=== PATIENT | female | born 1970 | race African-American/Black ===

== ENCOUNTER 2019-03-02 09:46 | Emergency (ER) | payer SELFPAY ==
[2019-03-02] MEDS ORDERED: NORMAL SALINE 1000 ML 1,000 ML IV ONE (10:18)
--- NOTE | 2019-03-02 10:20 | ER Document Report ---
ED Medical Screen (RME) - General Chief Complaint: Chest Pain Stated Complaint: CHEST PAINS/LOW ENERGY/BLURRY VISION/DIZZY Time Seen by Provider: 03/02/19 10:16 Primary Care Provider: KENZIE MYLES MD [Primary Care Provider] - Follow up as needed Mode of Arrival: Ambulatory Information source: Patient Notes: 48-year-old female presents to ED for complaint of blurred vision nausea frequent urination dizziness and chest pain. She is a type II diabetic that takes Lantus and metformin and metformin. She states she been taking her metformin but not her Lantus. Her blood sugar is elevated in the emergency room. She states she also has a history of high blood pressure and anxiety. She states she is taking those medications. Patient states she does inter mittently have chest pain. And she does have some at this time. Patient is alert oriented respirations regular and unlabored speaking in full sentences walks with a even steady gait. She has been ordered blood work chest x-ray Accu-Chek and IV fluids. The patient has chosen to leave the facility against medical advice. The relevant issues have been reviewed and discussed with the patient and family at the bedside. At the time of this assessment there is no indication for involuntary commitment. The patient is alert, oriented, and able to express clearly their reasoning for not wanting to remain in the emergency department for further treatment. The patient is not clinically psychotic, intoxicated, and denies and suicidal ideation. Differential or suspected diagnoses based on medical screening exam: . The patient is aware of the concerning diagnoses and acknowledges understanding of the reasons for the following recommendations: The following recommendations/services were offered and refused: The following risks were explained: , permanent disability, loss of function Clinical impression: Patient is competent to make decisions regarding the medical that is being offered. TRAVEL OUTSIDE OF THE [place] IN LAST 30 DAYS: No - Related Data Allergies/Adverse Reactions: Penicillins Allergy (Verified 03/02/19 09:48) Past Medical History - Social History Frequency of alcohol use: None Drug Abuse: None - Past Medical History Cardiac Medical History: Reports: Hx Hypertension - on meds Denies: Hx Coronary Artery Disease, Hx Heart Attack Pulmonary Medical History: Denies: Hx Asthma, Hx Bronchitis, Hx COPD, Hx Pneumonia Neurological Medical History: Denies: Hx Cerebrovascular Accident, Hx Seizures Endocrine Medical History: Reports: Hx Diabetes Mellitus Type 2 Renal/ Medical History: Denies: Hx Peritoneal Dialysis Musculoskeltal Medical History: Reports Hx Arthritis - low back arthritis Psychiatric Medical History: Reports: Hx Depression Past Surgical History: Reports: Hx Tubal Ligation. Denies: Hx Hysterectomy - 30 - Immunizations Hx Diphtheria, Pertussis, Tetanus Vaccination: Yes Physical Exam - Vital signs Vitals: Temp Pulse Resp BP Pulse Ox 97.5 F 87 20 132/89 H 96 03/02/19 10:00 03/02/19 10:00 03/02/19 10:00 03/02/19 10:00 03/02/19 10:00 Course - Vital Signs Vital signs: Temp Pulse Resp BP Pulse Ox 97.5 F 87 20 132/89 H 96 03/02/19 10:00 03/02/19 10:00 03/02/19 10:00 03/02/19 10:00 03/02/19 10:00 - Laboratory Laboratory results interpreted by me: 03/02/19 10:08 POC Glucose 356 H Doctor's Discharge - Discharge Referrals: KENZIE MYLES MD [Primary Care Provider] - Follow up as needed
--- NOTE | 2019-03-02 11:14 | RADIOLOGY REPORT (SQ) ---
EXAM DESCRIPTION: CHEST 2 VIEWS COMPLETED DATE/TIME: 03/02/2019 10:49 am REASON FOR STUDY: chest pain COMPARISON: 04/28/2016. EXAM PARAMETERS: NUMBER OF VIEWS: two views TECHNIQUE: Digital Frontal and Lateral radiographic views of the chest acquired. RADIATION DOSE: NA LIMITATIONS: none FINDINGS: LUNGS AND PLEURA: No opacities, masses or pneumothorax. No pleural effusion. MEDIASTINUM AND HILAR STRUCTURES: No masses or contour abnormalities. HEART AND VASCULAR STRUCTURES: Heart normal size. No evidence for failure. BONES: No acute findings. HARDWARE: None in the chest. OTHER: No other significant finding. IMPRESSION: NO ACUTE RADIOGRAPHIC FINDING IN THE CHEST. TECHNICAL DOCUMENTATION: JOB ID: [id number] [employer]- All Rights Reserved Reading location - IP/workstation name: [email or web address]
--- NOTE | 2019-03-02 11:14 | ER Document Report ---
ED General - General Chief Complaint: Chest Pain Stated Complaint: CHEST PAINS/LOW ENERGY/BLURRY VISION/DIZZY Time Seen by Provider: 03/02/19 10:16 Primary Care Provider: KENZIE MYLES MD [Primary Care Provider] - Follow up as needed Mode of Arrival: Ambulatory Notes: Pleasant 48-year-old female with [id number] diabetes mellitus presents to the emergency department for multiple complaints. Chief among those is blurred vision over the last couple of weeks low energy urinary frequency, dizziness, and concerned that blood sugar might be high. Also complains of chest pains and vaginal irritation. She does periodically get cold sweats, denies recent illness, denies shortness of breath, randomly gets nausea, denies vomiting, complains of epigastric pain, denies any pelvic pain, complains of urinary frequency, denies dysuria. She says she is not compliant with her me dication regimen. TRAVEL OUTSIDE OF THE [place] IN LAST 30 DAYS: No - Related Data Allergies/Adverse Reactions: Penicillins Allergy (Verified 03/02/19 09:48) Past Medical History - General Information source: Patient - Social History Smoking Status: Never Smoker Frequency of alcohol use: None Drug Abuse: None Family History: Reviewed & Not Pertinent Patient has suicidal ideation: No Patient has homicidal ideation: No - Past Medical History Cardiac Medical History: Reports: Hx Hypertension - on meds Denies: Hx Coronary Artery Disease, Hx Heart Attack Pulmonary Medical History: Denies: Hx Asthma, Hx Bronchitis, Hx COPD, Hx Pneumonia Neurological Medical History: Denies: Hx Cerebrovascular Accident, Hx Seizures Endocrine Medical History: Reports: Hx Diabetes Mellitus Type 2 Renal/ Medical History: Denies: Hx Peritoneal Dialysis Musculoskeletal Medical History: Reports Hx Arthritis - low back arthritis Psychiatric Medical History: Reports: Hx Depression Past Surgical History: Reports: Hx Tubal Ligation. Denies: Hx Hysterectomy - 32 - Immunizations Hx Diphtheria, Pertussis, Tetanus Vaccination: Yes Review of Systems - Review of Systems Constitutional: See HPI EENT: No symptoms reported Cardiovascular: See HPI Respiratory: See HPI Gastrointestinal: See HPI Genitourinary: See HPI Female Genitourinary: No symptoms reported Musculoskeletal: No symptoms reported Skin: No symptoms reported Hematologic/Lymphatic: No symptoms reported Neurological/Psychological: No symptoms reported Physical Exam - Vital signs Vitals: Temp Pulse Resp BP Pulse Ox 97.5 F 87 20 132/89 H 96 04/19/19 10:00 03/02/19 10:00 03/02/19 10:00 03/02/19 10:00 03/02/19 10:00 - Notes Notes: PHYSICAL EXAMINATION: Reviewed vital signs and charting by RN GENERAL: Alert, interacts well. No acute distress. HEAD: Normocephalic, atraumatic. EYES: Pupils equal and round. Extraocular movements intact. ENT: Oral mucosa moist, tongue midline. NECK: Full range of motion. Supple. Trachea midline. LUNGS: Clear to auscultation bilaterally, no wheezes, rales, or rhonchi. No respiratory distress. HEART: Regular rate and rhythm. No murmur ABDOMEN: soft, non-tender. Non-distended. Bowel sounds present. no McBurney's point tenderness, no Perez sign. EXTREMITIES: Moves all 4 extremities spontaneously. No edema, No cyanosis. Normal distal neurovascular exam BACK: No CVAT NEUROLOGIC: Oriented and appropriate. Normal speech. PSYCH: Normal affect, normal mood. SKIN: Warm, dry, normal turgor. No rashes or lesions noted. Course - Re-evaluation Re-evalutation: 03/02/19 12:23 Very pleasant 48-year-old female with polyuria and poorly treated diabetes presents for multiple problems. Blood glucose in the 350s, bicarb 25, no evidence of DKA. PH 7.36. Otherwise no electrolyte derangements or lab abnormalities. Troponin negative. EKG unremarkable for STEMI or N STEMI. Patient is complaining of some vaginal itching. 03/02/19 12:38 We will give her Diflucan 150 mg 1 time and regular insulin 8 units subcutaneous. 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 The majority of these issues stem from your sugar. We have given you some insulin most of which stem from your uncontrolled diabetes here in the emergency department to help reduce your blood sugar a little bit. It is high but it is not it is dangerous level and you do not have DKA that would keep you in the hospital. It is important to continue taking your insulin at night and to take your metformin. Blood sugar asked like battery acid on your blood vessels and over time will cause you serious problems. For the vaginal itching we have given you something called Diflucan. This should help your symptoms somewhat. Is a one-time dosing. If you become severely lightheaded, pass out, become dehydrated from frequent urination, have intractable nausea or vomiting, severe chest pain, please immediately return to the emergency department. Referrals: KENZIE MYLES MD [Primary Care Provider] - Follow up as needed
[2019-03-02 11:37] LABS: ABSOLUTE BASOPHILS # (AUTO) 0.1 10^3/uL (0.0-0.2); ABSOLUTE EOSINOPHILS # (AUTO) 0.1 10^3/uL (0.0-0.6); ABSOLUTE LYMPHOCYTES (AUTO) 1.6 10^3/uL (0.5-4.7); ABSOLUTE MONOCYTES (AUTO) 0.4 10^3/uL (0.1-1.4); ABSOLUTE NEUT (AUTO) 2.9 10^3/uL (1.7-8.2); EOSINOPHILS % (AUTO) 1.5 % (0-6); HEMATOCRIT 41.1 % (36.0-47.0); HEMOGLOBIN 13.2 g/dL (12.0-15.5); LYMPHOCYTES % (AUTO) 32.6 % (13-45); MEAN CORPUSCULAR HEMOGLOBIN 26.2 pg (27.0-33.4); MEAN CORPUSCULAR HGB CONC 32.2 g/dL (32.0-36.0); MEAN CORPUSCULAR VOLUME 81 fl (80-97); MONOCYTES % (AUTO) 7.5 % (3-13); PLATELET COUNT 260 10^3/uL (150-450); RED BLOOD COUNT 5.06 10^6/uL (3.72-5.28); RED CELL DISTRIBUTION WIDTH 14.5 % (11.5-14.0); SEGMENTED NEUTROPHILS % (AUTO) 57.4 % (42-78); TOTAL CELLS COUNTED % (AUTO) 100 %
[2019-03-02 11:42] LABS: VENOUS BLOOD BASE EXCESS 0.3 mmol/L; VENOUS BLOOD HCO3 25.8 mmol/L (20-32); VENOUS BLOOD PCO2 45.2 mmHg (35-63); VENOUS BLOOD PH 7.38 (7.30-7.42)
[2019-03-02 11:57] LABS: APPEARANCE,URINE CLEAR; BILIRUBIN,URINE NEGATIVE (NEGATIVE); COLOR,URINE YELLOW; GLUCOSE, URINE >=500 mg/dL (NEGATIVE); KETONES,URINE NEGATIVE (NEGATIVE); LEUKOCYTE ESTERASE,URINE NEGATIVE (NEGATIVE); NITRITE,URINE NEGATIVE (NEGATIVE); PROTEIN,URINE NEGATIVE (NEGATIVE); URINE SPECIFIC GRAVITY 1.029; UROBILINOGEN,URINE NEGATIVE mg/dL (<2.0)
[2019-03-02 12:01] LABS: ALANINE AMINOTRANSFERASE 34 U/L (9-52); ALBUMIN 3.9 g/dL (3.5-5.0); ALKALINE PHOSPHATASE 126 U/L (38-126); ANION GAP 10 (5-19); ASPARTATE AMINO TRANSFERASE 23 U/L (14-36); BILIRUBIN,DIRECT 0.2 mg/dL (0.0-0.4); BILIRUBIN,TOTAL 0.4 mg/dL (0.2-1.3); BLOOD UREA NITROGEN 10 mg/dL (7-20); CALCIUM 9.6 mg/dL (8.4-10.2); CARBON DIOXIDE 25 mmol/L (22-30); CHLORIDE 101 mmol/L (98-107); GLUCOSE 398 mg/dL (75-110); POTASSIUM 4.4 mmol/L (3.6-5.0); SODIUM 135.9 mmol/L (137-145); TOTAL PROTEIN 7.9 g/dL (6.3-8.2)
[2019-03-02 12:17] LABS: CREATINE KINASE MB < 0.22 ng/mL (<4.55); TROPONIN I < 0.012 ng/mL
[2019-03-02] MEDS ORDERED: INSULIN REG, HUMAN 100 UNIT/ML 3 ML VIAL (PYX) SUBCUT ONE (12:38)
[2019-03-02] MEDS ORDERED: FLUCONAZOLE 100 MG TABLET PO ONE (12:43)
[2019-03-02 13:27] VITALS: BP 121/76
--- NOTE | 2019-03-02 19:31 | EKG REPORT ---
SEVERITY:- BORDERLINE ECG - SINUS RHYTHM PROBABLE LEFT ATRIAL ABNORMALITY BORDERLINE T ABNORMALITIES, ANTERIOR LEADS : Confirmed by: Sylvie Nevarez MD 02-Mar-2019 19:30:34
== END 2019-03-02 13:27 | disposition home or self-care (01) ==
LOC: ER 09:46
DX: E11.65 Type 2 diabetes mellitus with hyperglycemia (principal); L29.9 Pruritus, unspecified; H53.8 Other visual disturbances; R35.0 Frequency of micturition; R42 Dizziness and giddiness; R07.9 Chest pain, unspecified; R61 Generalized hyperhidrosis; I10 Essential (primary) hypertension; Z88.0 Allergy status to penicillin
CPT/HCPCS: 93005; 99285; 96360; 96361; 36415; 82553; 82962; 84703; 85025; 80053; 81001; 84484; 82803; 71046; 93010; J1815; J7030

== ENCOUNTER 2019-05-11 10:13 | Emergency (ER) | payer SELFPAY ==
--- NOTE | 2019-05-11 11:44 | ER Document Report ---
ED Medical Screen (RME) - General Chief Complaint: Sore Throat Stated Complaint: SORE THROAT Time Seen by Provider: 05/11/19 11:28 Mode of Arrival: Ambulatory Information source: Patient Notes: Patient is a 49-year-old female presented to the emergency department with multiple complaints. She was initially seen through [facility] as she had initially reported a "growth in throat". Upon further discussion patient has been having fatigue, fever and chills, tightness in her chest over the last few days that woke her up last night. She denies any cough or congestion. She does report no pain in her throat but reports that she sees a growth on her right tonsil. She also reports urinary frequency and intermittent diarrhea. Patient does not have a primary care provider. Exam: Lung sounds clear and equal bilaterally. Tonsil stone noted to right tonsil. I have greeted and performed a rapid initial assessment of this patient. A comprehensive ED assessment and evaluation of the patient, analysis of test results and completion of the medical decision making process will be conducted by additional ED providers. I have specifically instructed the patient or family members with the patient to immediately return to any nursing staff should anything change in the patient's condition or with their chief complaint. This medical record was dictated with voice recognizing software. There may be grammatical, syntax errors that are unintended. TRAVEL OUTSIDE OF THE [place] IN LAST 30 DAYS: No - Related Data Allergies/Adverse Reactions: Penicillins Allergy (Verified 05/11/19 10:14) Past Medical History - Past Medical History Cardiac Medical History: Reports: Hx Hypertension - on meds Denies: Hx Coronary Artery Disease, Hx Heart Attack Pulmonary Medical History: Denies: Hx Asthma, Hx Bronchitis, Hx COPD, Hx Pneumonia Neurological Medical History: Denies: Hx Cerebrovascular Accident, Hx Seizures Endocrine Medical History: Reports: Hx Diabetes Mellitus Type 2 Renal/ Medical History: Denies: Hx Peritoneal Dialysis Musculoskeltal Medical History: Reports Hx Arthritis - low back arthritis Psychiatric Medical History: Reports: Hx Depression Past Surgical History: Reports: Hx Tubal Ligation. Denies: Hx Hysterectomy - Immunizations Hx Diphtheria, Pertussis, Tetanus Vaccination: Yes Physical Exam - Vital signs Vitals: Temp Pulse Resp BP Pulse Ox 97.8 F 89 16 143/79 H 97 05/11/19 10:18 05/11/19 10:18 05/11/19 10:18 05/11/19 10:18 05/11/19 10:18 Course - Vital Signs Vital signs: Temp Pulse Resp BP Pulse Ox 97.8 F 89 16 143/79 H 97 05/11/19 10:18 05/11/19 10:18 05/11/19 10:18 05/11/19 10:18 05/11/19 10:18
--- NOTE | 2019-05-11 12:25 | RADIOLOGY REPORT (SQ) ---
EXAM DESCRIPTION: CHEST SINGLE VIEW COMPLETED DATE/TIME: 05/11/2019 12:17 pm REASON FOR STUDY: chest pain COMPARISON: 03/02/2019. EXAM PARAMETERS: NUMBER OF VIEWS: One view. TECHNIQUE: Single frontal radiographic view of the chest acquired. RADIATION DOSE: NA LIMITATIONS: None. FINDINGS: LUNGS AND PLEURA: No opacities, masses or pneumothorax. No pleural effusion. MEDIASTINUM AND HILAR STRUCTURES: No masses. Contour normal. HEART AND VASCULAR STRUCTURES: Heart normal in size. Normal vasculature. BONES: No acute findings. HARDWARE: None in the chest. OTHER: No other significant finding. IMPRESSION: NO ACUTE RADIOGRAPHIC FINDING IN THE CHEST. TECHNICAL DOCUMENTATION: JOB ID: [id number] [employer]- All Rights Reserved Reading location - IP/workstation name: [email or web address]
[2019-05-11 12:30] LABS: ABSOLUTE BASOPHILS # (AUTO) 0.1 10^3/uL (0.0-0.2); ABSOLUTE EOSINOPHILS # (AUTO) 0.1 10^3/uL (0.0-0.6); ABSOLUTE LYMPHOCYTES (AUTO) 1.9 10^3/uL (0.5-4.7); ABSOLUTE MONOCYTES (AUTO) 0.5 10^3/uL (0.1-1.4); ABSOLUTE NEUT (AUTO) 3.6 10^3/uL (1.7-8.2); BASOPHILS % (AUTO) 1.2 % (0-2); EOSINOPHILS % (AUTO) 1.1 % (0-6); HEMATOCRIT 41.4 % (36.0-47.0); HEMOGLOBIN 13.3 g/dL (12.0-15.5); LYMPHOCYTES % (AUTO) 31.1 % (13-45); MEAN CORPUSCULAR VOLUME 81 fl (80-97); MONOCYTES % (AUTO) 8.2 % (3-13); PLATELET COUNT 330 10^3/uL (150-450); RED CELL DISTRIBUTION WIDTH 14.3 % (11.5-14.0); SEGMENTED NEUTROPHILS % (AUTO) 58.4 % (42-78); TOTAL CELLS COUNTED % (AUTO) 100 %; WHITE BLOOD COUNT 6.2 10^3/uL (4.0-10.5)
[2019-05-11 12:43] LABS: ALANINE AMINOTRANSFERASE 35 U/L (9-52); ALBUMIN 4.2 g/dL (3.5-5.0); ALKALINE PHOSPHATASE 184 U/L (38-126); ANION GAP 8 (5-19); ASPARTATE AMINO TRANSFERASE 29 U/L (14-36); BILIRUBIN,DIRECT 0.3 mg/dL (0.0-0.4); BILIRUBIN,TOTAL 0.4 mg/dL (0.2-1.3); BLOOD UREA NITROGEN 10 mg/dL (7-20); CALCIUM 9.6 mg/dL (8.4-10.2); CARBON DIOXIDE 29 mmol/L (22-30); CHLORIDE 101 mmol/L (98-107); GLUCOSE 374 mg/dL (75-110); POTASSIUM 4.6 mmol/L (3.6-5.0); SODIUM 137.5 mmol/L (137-145); TOTAL PROTEIN 8.2 g/dL (6.3-8.2)
--- NOTE | 2019-05-11 15:46 | ER Document Report ---
ED General - General Chief Complaint: Sore Throat Stated Complaint: SORE THROAT Time Seen by Provider: 05/11/19 11:28 Mode of Arrival: Ambulatory TRAVEL OUTSIDE OF THE [place] IN LAST 30 DAYS: No - HPI Notes: Patient is a 49-year-old female that presents to the emergency department for chief complaint of growth on her tonsil. Patient states for the last 2 months she has had growths in her tonsils and has been spitting up large yellow and white stones. Currently she has one on her right tonsil and states she came in because she was concerned it may be cancer. She also has other complaints including blurry vision, urinary frequency, and chest heaviness that have been ongoing for the last few months. She is a diabetic but states she cannot afford her insulin. She has been compliant with her metformin. She states she tries to eat a good diabetic diet but often does eat bad foods. She denies any sharp chest pain that had any associated symptoms of diaphoresis nausea or shortness of breath recently. She currently is not experiencing any chest pain. She has not seen a primary care doctor in the area since moving back a few months ago. She does not run over the last time she is on [facility]. Past Medical History: Diabetes Past Surgical History: Reviewed in chart Social History: Denies tobacco, drug, and alcohol use Family History: Reviewed and noncontributory for presenting illness Allergies: Reviewed, see documented allergy list. REVIEW OF SYSTEMS: CONSTITUTIONAL : No fever No chills No diaphoresis No recent illness EENT: Tonsil stone vision changes No congestion No sore throat CARDIOVASCULAR: chest pain No palpitations RESPIRATORY: No shortness of breath No cough No difficulty breathing GASTROINTESTINAL: No abdominal pain No nausea No vomiting No diarrhea GENITOURINARY: Urinary frequency No dysuria No hematuria No difficulty urinating MUSCULOSKELETAL: No back pain No leg pain No arm pain SKIN: No rashes No lesions LYMPHATIC: No swollen, enlarged glands. NEUROLOGICAL: No lightheadedness No headache No weakness No paresthesias PSYCHIATRIC: No anxiety No depression PHYSICAL EXAMINATION: Vital signs reviewed, nursing noted reviewed. GENERAL: Well-appearing, obese and in no acute distress. HEAD: Atraumatic, normocephalic. EYES: Eyes appear normal, extraocular movements intact, sclera anicteric, conjunctiva are normal. ENT: Large right tonsil left, bilateral tonsillar enlargement without erythema or exudates. Nares patent, oropharynx clear, Moist mucous membranes. NECK: Normal range of motion, supple without lymphadenopathy LUNGS: Breath sounds clear to auscultation bilaterally and equal. No wheezes rales or rhonchi. HEART: Regular rate and rhythm without murmurs ABDOMEN: Soft, nontender, normoactive bowel sounds. No rebound, guarding, or rigidity. No masses appreciated. EXTREMITIES: Nontender, good range of motion, no pitting or edema. NEUROLOGICAL: No focal neurological deficits. Moves all extremities spontaneously Motor and sensory grossly intact on exam. PSYCH: Normal mood, normal affect. SKIN: Warm, Dry, normal turgor, no rashes or lesions noted on exposed skin - Related Data Allergies/Adverse Reactions: Penicillins Allergy (Verified 05/11/19 10:14) Past Medical History - General Information source: Patient - Social History Smoking Status: Never Smoker Chew tobacco use (# tins/day): No Frequency of alcohol use: Social Drug Abuse: None Family History: Reviewed & Not Pertinent Patient has suicidal ideation: No Patient has homicidal ideation: No - Past Medical History Cardiac Medical History: Reports: Hx Hypertension - on meds Denies: Hx Coronary Artery Disease, Hx Heart Attack Pulmonary Medical History: Denies: Hx Asthma, Hx Bronchitis, Hx COPD, Hx Pneumonia Neurological Medical History: Denies: Hx Cerebrovascular Accident, Hx Seizures Endocrine Medical History: Reports: Hx Diabetes Mellitus Type 2 Renal/ Medical History: Denies: Hx Peritoneal Dialysis Musculoskeletal Medical History: Reports Hx Arthritis - low back arthritis Psychiatric Medical History: Reports: Hx Depression Past Surgical History: Reports: Hx Tubal Ligation. Denies: Hx Hysterectomy - Immunizations Hx Diphtheria, Pertussis, Tetanus Vaccination: Yes Physical Exam - Vital signs Vitals: Temp Pulse Resp BP Pulse Ox 97.8 F 89 16 143/79 H 97 05/11/19 10:18 05/11/19 10:18 05/11/19 10:18 05/11/19 10:18 05/11/19 10:18 Course - Re-evaluation Re-evalutation: 05/11/19 15:46 Vitals reviewed. Nursing notes reviewed. Patient's work-up shows a negative troponin. Her EKG shows no acute ischemic changes. Her complaint of chest heav iness is intermittent over the last few months and not indicative of acute ACS. She also also complaining of urinary frequency and blurry vision which is most likely related to her hyperglycemia. Blood sugar today is 374. Patient has not been taking her insulin because of financial issues. She has been compliant with her home metformin. She is not in acute DKA. We did discuss diabetic diet as well as increasing intake of water. Patient will be referred to ophthalmology for follow-up of her blurry vision which is also likely secondary to her hyperglycemia and not specific for acute stroke. Patient will be referred to the [facility] as well as the [facility] to morris [facility] with primary care and attempt to get back on her diabetes medication regimen. Patient also referred to ENT for follow-up of her tonsilloliths. She is in agreement with this plan of care and stable for discharge. Laboratory 05/11/19 05/11/19 05/11/19 12:05 12:05 12:05 WBC 6.2 RBC 5.10 Hgb 13.3 Hct 41.4 MCV 81 MCH 26.0 L MCHC 32.0 RDW 14.3 H Plt Count 330 Seg Neutrophils % 58.4 Lymphocytes % 31.1 Monocytes % 8.2 Eosinophils % 1.1 Basophils % 1.2 Absolute Neutrophils 3.6 Absolute Lymphocytes 1.9 Absolute Monocytes 0.5 Absolute Eosinophils 0.1 Absolute Basophils 0.1 Sodium 137.5 Potassium 4.6 Chloride 101 Carbon Dioxide 29 Anion Gap 8 BUN 10 Creatinine 0.46 L Est GFR ( Amer) > 60 Est GFR (Non-Af Amer) > 60 Glucose 374 H Calcium 9.6 Total Bilirubin 0.4 Direct Bilirubin 0.3 Neonat Total Bilirubin Not Reportable Neonat Direct Bilirubin Not Reportable Neonat Indirect Bili Not Reportable AST 29 ALT 35 Alkaline Phosphatase 184 H Troponin I < 0.012 Total Protein 8.2 Albumin 4.2 Serum HCG, Qual Group A Strep Rapid 05/11/19 05/11/19 12:05 12:05 WBC RBC Hgb Hct MCV MCH MCHC RDW Plt Count Seg Neutrophils % Lymphocytes % Monocytes % Eosinophils % Basophils % Absolute Neutrophils Absolute Lymphocytes Absolute Monocytes Absolute Eosinophils Absolute Basophils Sodium Potassium Chloride Carbon Dioxide Anion Gap BUN Creatinine Est GFR ( Amer) Est GFR (Non-Af Amer) Glucose Calcium Total Bilirubin Direct Bilirubin Neonat Total Bilirubin Neonat Direct Bilirubin Neonat Indirect Bili AST ALT Alkaline Phosphatase Troponin I Total Protein Albumin Serum HCG, Qual NEGATIVE Group A Strep Rapid NEGATIVE Chest X-Ray 05/11/19 11:42 IMPRESSION: NO ACUTE RADIOGRAPHIC FINDING IN THE CHEST. - Vital Signs Vital signs: Temp Pulse Resp BP Pulse Ox 98.3 F 89 19 143/79 H 100 05/11/19 12:33 05/11/19 10:18 05/11/19 12:33 05/11/19 10:18 05/11/19 12:33 - Laboratory Result Diagrams: 05/11/19 12:05 05/11/19 12:05 Laboratory results interpreted by me: 05/11/19 05/11/19 12:05 12:05 MCH 26.0 L RDW 14.3 H Creatinine 0.46 L Glucose 374 H Alkaline Phosphatase 184 H - EKG Interpretation by Me Additional EKG results interpreted by me: 05/11/19 15:47 Interpreted by myself [id number]: Normal sinus rhythm, rate 90, normal axis, no ectopy, no STEMI, no significant change from 03/02/2019 Discharge - Discharge Clinical Impression: Tonsillolith, Hyperglycemia Condition: Stable Disposition: HOME, SELF-CARE Instructions: Diabetes ([facility]) Additional Instructions: The growth cc on your tonsil is called a tonsillolith, it is a benign stone. Contact the ear nose and throat physician Dr. Solomon to discuss further management. I have provided Dr. Wise's phone number, ophthalmology, for follow-up of your blurry vision. Elevated blood sugars can cause problems with vision and you should be seen by the outdoor guide yearly for exams because of your diabetes. Please return to the emergency department if you have any worsening, or concern of your symptoms. Please return to the emergency department if you develop chest pain, difficulty breathing, severe abdominal pain, or ongoing vomiting. Please follow-up with your primary care physician in 2-3 days and any other recommended physicians. If prescribed, take all medications as directed. If you have any questions or concerns do not hesitate to return the emergency department for evaluation. Referrals: CHERYL SOLOMON MD [ACTIVE STAFF] - Follow up as needed FIDE WISE MD [ACTIVE STAFF] - Follow up in 1 week [facility] [Provider Group] - Follow up in 3-5 days [facility] [Provider Group] - Follow up in 3-5 days
[2019-05-11 16:36] VITALS: BP 134/74
--- NOTE | 2019-05-12 23:51 | EKG REPORT ---
SEVERITY:- NORMAL ECG - SINUS RHYTHM : Confirmed by: Kim Abreu 12-May-2019 23:50:09
== END 2019-05-11 16:36 | disposition home or self-care (01) ==
LOC: ER 10:13
DX: J35.8 Other chronic diseases of tonsils and adenoids (principal); J02.9 Acute pharyngitis, unspecified; E11.65 Type 2 diabetes mellitus with hyperglycemia; I10 Essential (primary) hypertension; Z98.51 Tubal ligation status; Z88.0 Allergy status to penicillin
CPT/HCPCS: 36415; 71045; 80053; 84484; 84703; 85025; 87070; 87880; 93005; 93010; 99283

== ENCOUNTER 2019-06-05 10:39 | Emergency (ER) | payer SELFPAY ==
[2019-06-05 11:55] LABS: APPEARANCE,URINE SLIGHTLY-CLOUDY; BILIRUBIN,URINE NEGATIVE (NEGATIVE); COLOR,URINE YELLOW; GLUCOSE, URINE >=500 mg/dL (NEGATIVE); KETONES,URINE NEGATIVE (NEGATIVE); LEUKOCYTE ESTERASE,URINE TRACE (NEGATIVE); NITRITE,URINE NEGATIVE (NEGATIVE); PROTEIN,URINE NEGATIVE (NEGATIVE); URINE SPECIFIC GRAVITY 1.022; UROBILINOGEN,URINE NEGATIVE mg/dL (<2.0)
[2019-06-05 11:56] LABS: BACTERIA (WET MOUNT) 4+ BACTERIA SEEN; EPITHELIALS (WET MOUNT) 4+ EPITHELIALS SEEN; RBCS (WET MOUNT) 4+ RBCS SEEN; T.VAGINALIS (WET MOUNT) TRICHOMONAS SEEN; WBCS (WET MOUNT) 3+ WBCS SEEN; YEAST (WET MOUNT) NO YEAST SEEN
[2019-06-05 12:44] LABS: ABSOLUTE EOSINOPHILS # (AUTO) 0.1 10^3/uL (0.0-0.6); ABSOLUTE LYMPHOCYTES (AUTO) 1.6 10^3/uL (0.5-4.7); ABSOLUTE MONOCYTES (AUTO) 0.4 10^3/uL (0.1-1.4); BASOPHILS % (AUTO) 0.5 % (0-2); EOSINOPHILS % (AUTO) 1.2 % (0-6); HEMATOCRIT 39.7 % (36.0-47.0); HEMOGLOBIN 12.5 g/dL (12.0-15.5); LYMPHOCYTES % (AUTO) 26.6 % (13-45); MEAN CORPUSCULAR HEMOGLOBIN 25.7 pg (27.0-33.4); MEAN CORPUSCULAR HGB CONC 31.5 g/dL (32.0-36.0); MEAN CORPUSCULAR VOLUME 82 fl (80-97); MONOCYTES % (AUTO) 6.1 % (3-13); PLATELET COUNT 233 10^3/uL (150-450); RED BLOOD COUNT 4.86 10^6/uL (3.72-5.28); SEGMENTED NEUTROPHILS % (AUTO) 65.6 % (42-78); TOTAL CELLS COUNTED % (AUTO) 100 %; WHITE BLOOD COUNT 6.1 10^3/uL (4.0-10.5)
[2019-06-05 13:04] LABS: ALANINE AMINOTRANSFERASE 27 U/L (9-52); ALBUMIN 3.8 g/dL (3.5-5.0); ALKALINE PHOSPHATASE 123 U/L (38-126); ANION GAP 11 (5-19); ASPARTATE AMINO TRANSFERASE 36 U/L (14-36); BILIRUBIN,DIRECT 0.3 mg/dL (0.0-0.4); BILIRUBIN,TOTAL 0.7 mg/dL (0.2-1.3); BLOOD UREA NITROGEN 9 mg/dL (7-20); CALCIUM 9.4 mg/dL (8.4-10.2); CARBON DIOXIDE 25 mmol/L (22-30); CHLORIDE 100 mmol/L (98-107); CREATINE KINASE 27 U/L (30-135); GLUCOSE 298 mg/dL (75-110); POTASSIUM 3.9 mmol/L (3.6-5.0); TOTAL PROTEIN 7.7 g/dL (6.3-8.2)
[2019-06-05 13:15] LABS: CREATINE KINASE MB < 0.22 ng/mL (<4.55); TROPONIN I < 0.012 ng/mL
[2019-06-05 13:27] LABS: CHLAM PCR NOT DETECTED (NOT DETECT)
--- NOTE | 2019-06-05 13:36 | EKG REPORT ---
SEVERITY:- BORDERLINE ECG - SINUS RHYTHM BORDERLINE T ABNORMALITIES, INFERIOR LEADS : Confirmed by: Kim Abreu 05-Jun-2019 13:35:47
[2019-06-05] MEDS ORDERED: METRONIDAZOLE 500 MG TABLET PO ONE (14:06)
[2019-06-05 14:35] VITALS: BP 141/89
--- NOTE | 2019-06-05 19:17 | ER Document Report ---
Entered by SYDNI JIANG SCRIBE 06/05/19 1124 Acting as scribe for:JAMES VELÁZQUEZ DO ED General - General Chief Complaint: Vaginal Itching Stated Complaint: VAGINAL IRRITATION Time Seen by Provider: 06/05/19 11:04 Notes: Patient is a 49-year-old female presenting to the emergency department complaining of vaginal irritation, with associated vaginal pain. Patient states that today she noticed her urine was a yellow-pinkish color, she has been experiencing hematuria, and with her vaginal pain she has been experiencing urethral pain. Patient states that she has been having the irritation for some time now, she tried using Vagisil with minimal relief, she then tried AZO also without relief. Patient states that it feels like "cuts", and recently began feeling like burning, she has been experiencing urinary urgency and frequency. Patient states she has been feeling nauseous, 2 weeks ago she began having chest pain. Patient states that when she does not have her bra on the chest pain is alleviated. Patient states that she has been experiencing lower abdominal cramps, as well. Patient denies having any vaginal discharge, vaginal bleeding, vomiting, diarrhea, dysuria, blood in stool, having any new sexual partners, having sex recently. TRAVEL OUTSIDE OF THE [place] IN LAST 30 DAYS: No - Related Data Allergies/Adverse Reactions: Penicillins Allergy (Verified 06/05/19 10:41) Past Medical History - General Information source: Patient - Social History Smoking Status: Never Smoker Cigarette use (# per day): No Chew tobacco use (# tins/day): No Frequency of alcohol use: Rare Drug Abuse: None Family History: Reviewed & Not Pertinent Patient has suicidal ideation: No Patient has homicidal ideation: No - Past Medical History Cardiac Medical History: Reports: Hx Hypertension - on meds Endocrine Medical History: Reports: Hx Diabetes Mellitus Type 2 Musculoskeletal Medical History: Reports Hx Arthritis - low back arthritis Psychiatric Medical History: Reports: Hx Depression Past Surgical History: Reports: Hx Tubal Ligation. Denies: Hx Hysterectomy - Immunizations Hx Diphtheria, Pertussis, Tetanus Vaccination: Yes Review of Systems - Review of Systems Constitutional: No symptoms reported EENT: No symptoms reported Cardiovascular: See HPI, Chest pain Respiratory: No symptoms reported Gastrointestinal: See HPI, Abdominal pain, Nausea, Other - Cramping. denies: Diarrhea, Vomiting, Blood streaked bowels Genitourinary: See HPI, Burning, Hematuria, Urgency, Other - Discolored urine. denies: Dysuria Female Genitourinary: See HPI, Other - Vaginal pain, vaginal irritation. denies: Vaginal discharge, Vaginal bleeding Musculoskeletal: No symptoms reported Skin: No symptoms reported Hematologic/Lymphatic: No symptoms reported Neurological/Psychological: No symptoms reported -: Yes All other systems reviewed and negative Physical Exam - Vital signs Vitals: Temp Pulse Resp BP Pulse Ox 98.0 F 92 17 155/88 H 96 06/05/19 10:43 06/05/19 10:43 06/05/19 10:43 06/05/19 10:43 06/05/19 10:43 Interpretation: Hypertensive - Notes Notes: PHYSICAL EXAM GENERAL: Alert, interacts well. No acute distress. HEAD: Normocephalic, atraumatic. EYES: Pupils equal, round, and reactive to light. Extraocular movements intact. ENT: Oral mucosa moist, tongue midline. NECK: Full range of motion. Supple. Trachea midline. LUNGS: Clear to auscultation bilaterally, no wheezes, rales, or rhonchi. No respiratory distress. HEART: Regular rate and rhythm. No murmurs, gallops, or rubs. ABDOMEN: Soft, non-tender. Non-distended. Bowel sounds present in all 4 quadrants. No guarding, rigidity, or rebound. EXTREMITIES: Moves all 4 extremities spontaneously. No edema, radial and dorsali s pedis pulses 2/4 bilaterally. No cyanosis. PELVIC: Erythema and excoriations to the external labia, no vesicles, no swelling. Internally small dark brown bloody discharge, no cervical motion tenderness, no adnexal tenderness. NEUROLOGICAL: Alert and oriented x3. Normal speech. Biceps and patellar DTRs 2+ bilaterally. PSYCH: Normal affect, normal mood. SKIN: Warm, dry, normal turgor. No rashes or lesions noted. Course - Re-evaluation Re-evalutation: 06/05/19 14:07 CBC unremarkable, CMP grossly unremarkable with the exception of elevated glucose at 298, cardiac enzymes negative, test negative, urinalysis shows glucose but no true signs of infection, wet prep shows trichomonas, no yeast. Gonorrhea and chlamydia are not detected. Patient will be treated with Flagyl and discharged to home. 06/05/19 14:09 Patient is known to be a diabetic. 06/05/19 19:17 Cardiac enzymes negative in this patient who is chest pain is alleviated by removing her bra and has been going on constantly for 2 weeks. - Vital Signs Vital signs: Temp Pulse Resp BP Pulse Ox 97.8 F 83 16 141/89 H 99 06/05/19 14:33 06/05/19 14:33 06/05/19 14:33 06/05/19 14:33 06/05/19 14:33 - Laboratory Result Diagrams: 06/05/19 12:17 06/05/19 12:17 Laboratory results interpreted by me: 06/05/19 06/05/19 06/05/19 11:28 12:17 12:17 MCH 25.7 L MCHC 31.5 L RDW 15.0 H Sodium 135.7 L Creatinine 0.36 L Glucose 298 H Creatine Kinase 27 L Urine Glucose (UA) >=500 H Urine Blood MODERATE H Ur Leukocyte Esterase TRACE H - EKG Interpretation by Me Additional EKG results interpreted by me: 06/05/19 14:10 EKG shows sinus rhythm at a rate of 86, normal axis, normal intervals, no ST elevations or depressions, isolated, unchanged T-wave inversion in lead 3 per my interpretation. Discharge - Discharge Clinical Impression: Trichomonas vaginalis (TV) infection, Morbid obesity with BMI of 45.0-49.9, adult, Chest tightness Diabetes mellitus type 1 Qualifiers: Diabetes mellitus complication status: with hyperglycemia Qualified Code(s): E10.65 - Type 1 diabetes mellitus with hyperglycemia Condition: Stable Disposition: HOME, SELF-CARE Instructions: Trichomonas Infection ([facility]) Prescriptions: Metronidazole [Flagyl 500 mg Tablet] 500 mg PO BID #14 tablet Forms: Return to Work I personally performed the services described in the documentation, reviewed and edited the documentation which was dictated to the scribe in my presence, and it accurately records my words and actions.
== END 2019-06-05 14:45 | disposition home or self-care (01) ==
LOC: ER 10:39
DX: A59.01 Trichomonal vulvovaginitis (principal); E10.65 Type 1 diabetes mellitus with hyperglycemia; R07.89 Other chest pain; E66.01 Morbid (severe) obesity due to excess calories; Z68.42 Body mass index [BMI] 45.0-49.9, adult; R31.9 Hematuria, unspecified; R35.0 Frequency of micturition; R39.15 Urgency of urination; R11.0 Nausea; R10.30 Lower abdominal pain, unspecified; I10 Essential (primary) hypertension; Z88.0 Allergy status to penicillin
CPT/HCPCS: 36415; 80053; 81001; 82550; 82553; 84484; 84703; 85025; 87086; 87088; 87210; 87491; 87591; 93005; 93010; 99283

== ENCOUNTER 2019-11-25 11:59 | Emergency (ER) | payer OTHER ==
[2019-11-25 13:08] LABS: ABSOLUTE BASOPHILS # (AUTO) 0.2 10^3/uL (0.0-0.2); ABSOLUTE EOSINOPHILS # (AUTO) 0.1 10^3/uL (0.0-0.6); ABSOLUTE LYMPHOCYTES (AUTO) 2.1 10^3/uL (0.5-4.7); ABSOLUTE MONOCYTES (AUTO) 0.6 10^3/uL (0.1-1.4); EOSINOPHILS % (AUTO) 0.9 % (0-6); HEMATOCRIT 44.4 % (36.0-47.0); HEMOGLOBIN 14.3 g/dL (12.0-15.5); LYMPHOCYTES % (AUTO) 26.6 % (13-45); MEAN CORPUSCULAR HEMOGLOBIN 26.1 pg (27.0-33.4); MEAN CORPUSCULAR HGB CONC 32.1 g/dL (32.0-36.0); MEAN CORPUSCULAR VOLUME 81 fl (80-97); MONOCYTES % (AUTO) 7.4 % (3-13); PLATELET COUNT 284 10^3/uL (150-450); RED BLOOD COUNT 5.48 10^6/uL (3.72-5.28); RED CELL DISTRIBUTION WIDTH 14.5 % (11.5-14.0); SEGMENTED NEUTROPHILS % (AUTO) 63.1 % (42-78); TOTAL CELLS COUNTED % (AUTO) 100 %; WHITE BLOOD COUNT 7.9 10^3/uL (4.0-10.5)
[2019-11-25 13:25] LABS: ALBUMIN 4.4 g/dL (3.5-5.0); ALKALINE PHOSPHATASE 158 U/L (38-126); ANION GAP 11 (5-19); ASPARTATE AMINO TRANSFERASE 22 U/L (14-36); BILIRUBIN,DIRECT 0.2 mg/dL (0.0-0.4); BILIRUBIN,TOTAL 0.5 mg/dL (0.2-1.3); BLOOD UREA NITROGEN 9 mg/dL (7-20); CALCIUM 9.5 mg/dL (8.4-10.2); CARBON DIOXIDE 25 mmol/L (22-30); CHLORIDE 102 mmol/L (98-107); CREATINE KINASE 25 U/L (30-135); GLUCOSE 338 mg/dL (75-110); POTASSIUM 4.3 mmol/L (3.6-5.0); TOTAL PROTEIN 8.5 g/dL (6.3-8.2)
--- NOTE | 2019-11-25 13:34 | RADIOLOGY REPORT (SQ) ---
EXAM DESCRIPTION: CHEST SINGLE VIEW COMPLETED DATE/TIME: 11/25/2019 12:06 pm REASON FOR STUDY: chest pain COMPARISON: 05/11/2019 EXAM PARAMETERS: NUMBER OF VIEWS: One view. TECHNIQUE: Single frontal radiographic view of the chest acquired. RADIATION DOSE: NA LIMITATIONS: None. FINDINGS: LUNGS AND PLEURA: No opacities, masses or pneumothorax. No pleural effusion. MEDIASTINUM AND HILAR STRUCTURES: No masses. Contour normal. HEART AND VASCULAR STRUCTURES: Heart normal in size. Normal vasculature. BONES: No acute findings. HARDWARE: None in the chest. OTHER: No other significant finding. IMPRESSION: NO ACUTE RADIOGRAPHIC FINDING IN THE CHEST. TECHNICAL DOCUMENTATION: JOB ID: [id number] [employer]- All Rights Reserved Reading location - IP/workstation name: [email or web address]
[2019-11-25 13:37] LABS: CREATINE KINASE MB < 0.22 ng/mL (<4.55); TROPONIN I < 0.012 ng/mL
[2019-11-25] MEDS ORDERED: NORMAL SALINE 1000 ML 1,000 ML IV ONE (15:07)
[2019-11-25] MEDS ORDERED: IBUPROFEN 600 MG TABLET PO ONE (15:08)
--- NOTE | 2019-11-25 15:10 | ER Document Report ---
ED Cardiac - General Chief Complaint: Chest Pain Stated Complaint: CHEST PAIN/BLURRED VISION Time Seen by Provider: 11/25/19 14:42 Primary Care Provider: GABRIELLE MCGOVERN MD [ACTIVE STAFF] - Follow up in 3-5 days HERNAN OLIVEIRA MD [ACTIVE STAFF] - Follow up in 3-5 days RAMÓN GONZALES MD [ACTIVE STAFF] - Follow up in 3-5 days Notes: Patient is a 49-year-old male who presents to the emergency department with a chief complaint of chest pain. She is also had blurred vision. She is had her symptoms on and off for the past about 24 hours. He describes her pain as an aching pain. Patient is a type II diabetic. She is supposed to be on metformin and Lantus, but has not been on them for the past few months. She is also supposed to be on hydrochlorothiazide, but has not been on that either. She states that she lost her insurance, but just recently got it back. TRAVEL OUTSIDE OF THE [place] IN LAST 30 DAYS: No - Related Data Allergies/Adverse Reactions: Penicillins Allergy (Verified 06/05/19 10:41) Past Medical History - Social History Smoking Status: Unknown if Ever Smoked Family History: Reviewed & Not Pertinent Patient has suicidal ideation: No Patient has homicidal ideation: No - Past Medical History Cardiac Medical History: Reports: Hx Hypertension - on meds Denies: Hx Coronary Artery Disease, Hx Heart Attack Pulmonary Medical History: Denies: Hx Asthma, Hx Bronchitis, Hx COPD, Hx Pneumonia Neurological Medical History: Denies: Hx Cerebrovascular Accident, Hx Seizures Endocrine Medical History: Reports: Hx Diabetes Mellitus Type 2 Renal/ Medical History: Denies: Hx Peritoneal Dialysis Musculoskeletal Medical History: Reports Hx Arthritis - low back arthritis Psychiatric Medical History: Reports: Hx Depression Past Surgical History: Reports: Hx Tubal Ligation. Denies: Hx Hysterectomy - Immunizations Hx Diphtheria, Pertussis, Tetanus Vaccination: Yes Review of Systems - Review of Systems Notes: REVIEW OF SYSTEMS: CONSTITUTIONAL : Denies recent illness. Denies recent unintentional weight loss. Denies fever, chills, or sweats. EENT: Denies ear, throat, or mouth pain, discharge, or symptoms. Denies nasal or sinus congestion. See HPI. CARDIOVASCULAR: See HPI. RESPIRATORY: Denies shortness of breath, cough, congestion, difficulty b reathing, or wheezing. GASTROINTESTINAL: Denies nausea, vomiting, and diarrhea. Denies abdominal pain. Denies constipation. GENITOURINARY: Denies difficulty urinating, burning, blood in urine, urgency or frequency. MUSCULOSKELETAL: Denies neck and back pain. Denies joint pain or swelling. SKIN: Denies rash, itchiness, or lesions HEMATOLOGIC : Denies easy bruising or bleeding. LYMPHATIC: Denies swollen, painful, enlarged glands. NEUROLOGICAL: Denies no numbness or tingling denies weakness. Denies headache. Denies altered mental status. Denies alteration in speech. PSYCHIATRIC: Denies stress, anxiety, alteration in sleep patterns, or depression. All other systems reviewed and negative. Physical Exam - Vital signs Vitals: Temp Pulse Resp BP Pulse Ox 98.8 F 98 16 137/83 H 100 11/25/19 12:19 11/25/19 12:19 11/25/19 12:19 11/25/19 12:19 11/25/19 12:19 - Notes Notes: PHYSICAL EXAMINATION: GENERAL: Appears well, healthy, well-nourished, no acute distress. HEAD: Normocephalic, atraumatic. EYES: PERRL, conjunctiva normal, all extraocular movements intact, sclera nonicteric ENT: Moist mucous membranes. NECK: Supple, no noticeable swelling, redness, rash. Normal range of motion. LUNGS: Equal breath sounds bilaterally and clear to auscultation. No wheezes rales or rhonchi. CARDIOVASCULAR: S1-S2, regular rate, regular rhythm. Radial pulses 2+, normal. Pain upon palpation of anterior chest. ABDOMEN: Normoactive bowel sounds. Soft, nontender, no guarding, no rebound tenderness, and no masses palpated. EXTREMITIES: Normal strength and range of motion, no pitting or edema. No cyanosis. NEUROLOGICAL: Moves all extremities upon command. Strength 5/5 in all extremities. PSYCH: Normal mood, normal affect. SKIN: Warm, dry. No rash, lesions, ulcerations noted. Normal skin turgor. Course - Re-evaluation Re-evalutation: 11/25/19 Patient's hematology is unremarkable. Her chemistries show a glucose of 338. This is most likely due to her uncontrolled diabetes. No anion gap noted. I have a very low suspicion for diabetic ketoacidosis, as the patient does not appear ill and she has been off her medications for quite some time now. Patient will be represcribed metformin. She will also receive a liter of fluids to help bring her glucose down. I believe her symptoms are due to her uncontrolled diabetes. I educated the patient on the importance of controlling her blood sugars, as this is now causing her to have blurred vision. Is a very low suspicion fo a globe rupture, or any left threatening etiology at this time. Pupils are PERRLA. Patient's blood sugar was rechecked and it did come down a little bit. I do not want to keep checking her blood sugar, as I believe this will come down over time with her metformin. Patient is to establish a primary care provider for further evaluation. She is in agreement with this plan. Follow-up precautions were given. Verbal discharge instructions were given to the patient. They v erbalized understanding. They are stable for discharge. - Vital Signs Vital signs: Temp Pulse Resp BP Pulse Ox 98.8 F 98 19 93/82 L 96 11/25/19 12:19 11/25/19 12:19 11/25/19 17:01 11/25/19 17:01 11/25/19 17:01 - Laboratory Result Diagrams: 11/25/19 12:46 11/25/19 12:46 Laboratory results interpreted by me: 11/25/19 11/25/19 11/25/19 12:46 12:46 16:10 RBC 5.48 H MCH 26.1 L RDW 14.5 H Creatinine 0.41 L Glucose 338 H POC Glucose 290 H Alkaline Phosphatase 158 H Creatine Kinase 25 L Total Protein 8.5 H 11/25/19 17:17 RBC MCH RDW Creatinine Glucose POC Glucose 325 H Alkaline Phosphatase Creatine Kinase Total Protein - EKG Interpretation by Me Additional EKG results interpreted by me: 11/25/19 Sinus rhythm. Rate 99. NM 188; QRS 84; QT 336; QTc 462. No ST eleveations or depression noted. Discharge - Discharge Clinical Impression: Blurred vision Hyperglycemia due to type 2 diabetes mellitus Qualifiers: Diabetes mellitus predatory animal exterminator insulin use: unspecified fdc insulin use status Qualified Code(s): E11.65 - Type 2 diabetes mellitus with hyperglycemia Chest pain Qualifiers: Chest pain type: unspecified Qualified Code(s): R07.9 - Chest pain, unspecified Condition: Stable Disposition: HOME, SELF-CARE Additional Instructions: You were seen today in the emergency department for chest pain and blurred vision. Your symptoms are due to uncontrolled diabetes. You are being restarted on your metformin. Please follow-up with a primary care provider in regards to this visit. Prescriptions: Metformin HCl [Glucophage 500 mg Tablet] 500 mg PO BID #60 tablet Referrals: RAMÓN GONZALES MD [ACTIVE STAFF] - Follow up in 3-5 days GABRIELLE MCGOVERN MD [ACTIVE STAFF] - Follow up in 3-5 days HERNAN OLIVEIRA MD [ACTIVE STAFF] - Follow up in 3-5 days
[2019-11-25 17:21] VITALS: BP 93/82
--- NOTE | 2019-11-25 17:36 | EKG REPORT ---
SEVERITY:- NORMAL ECG - SINUS RHYTHM : Confirmed by: Kim Aberu 25-Nov-2019 17:35:55
== END 2019-11-25 17:25 | disposition home or self-care (01) ==
LOC: ER 11:59
DX: H53.8 Other visual disturbances (principal); R07.9 Chest pain, unspecified; E11.65 Type 2 diabetes mellitus with hyperglycemia; I10 Essential (primary) hypertension; Z88.0 Allergy status to penicillin; Z98.51 Tubal ligation status
CPT/HCPCS: 93005; 99284; 96360; 96361; 36415; 82553; 82962; 82550; 85025; 80053; 84484; 71045; 93010; J7030

== ENCOUNTER 2020-02-11 09:07 | Emergency (ER) | payer OTHER ==
[2020-02-11] MEDS ORDERED: NORMAL SALINE 1000 ML 1,000 ML IV ONE ×2 (09:50→12:45)
--- NOTE | 2020-02-11 09:51 | ER Document Report ---
ED General - General Chief Complaint: Shortness Of Breath Stated Complaint: COUGH Time Seen by Provider: 02/11/20 09:28 Notes: CHIEF COMPLAINT: Multiple complaints HPI: 49-year-old diabetic female presenting for evaluation of multiple complain ts. Patient states that she stopped taking her diabetic medication 6 months ago because of insurance issues. Patient states she was on metformin 1000 mg twice daily and Lantus 40 units at night. Patient states that she has had a continuing pelvic rash and vaginal discharge and irritation over the last month. Denies dysuria denies abdominal pain nausea vomiting. Patient states that she does at times feel off balance. No visual change or loss. No chest pain. Patient does report a intermittent cough over the last month. Occasional shortness of breath. Does report [id number] in the hands and feet. Has not had a fever. ROS: See HPI - all other systems were reviewed and are otherwise negative Constitutional: no fever or recent illness Eyes: no drainage, no blurred vision ENT: no runny nose, no sore throat Cardiovascular: no chest pain Resp: Positive SOB, positive cough GI: no vomiting, no diarrhea : no dysuria, positive vaginal discharge Integumentary: no rash Allergy: no hives Musculoskeletal: no extremity pain or swelling Neurological: Positive numbness/tingling, no weakness MEDICATIONS: I agree with the patient medications as charted by the RN. ALLERGIES: I agree with the allergies as charted by the RN. PAST MEDICAL HISTORY/PAST SURGICAL HISTORY: Reviewed and agree as charted by RN. SOCIAL HISTORY: Reviewed and agree as charted by RN. FAMILY HISTORY: No significant familial comorbid conditions directly related to patient complaint EXAM: Reviewed vital signs as charted by RN. CONSTITUTIONAL: Alert and oriented and responds appropriately to questions. Well-appearing; well-nourished, no acute distress HEAD: Normocephalic; atraumatic EYES: PERRL; Conjunctivae clear, sclerae non-icteric ENT: normal nose; no rhinorrhea; moist mucous membranes; pharynx without lesions noted NECK: Supple without meningismus; non-tender; no cervical lymphadenopathy, no masses CARD: RRR; no murmurs, no clicks, no rubs, no gallops; symmetric distal pulses RESP: Normal chest excursion without splinting or tachypnea; breath sounds clear and equal bilaterally; no wheezes, no rhonchi, no rales, pulse oximetry 98% on room air not hypoxic ABD/GI: Obese, normal bowel sounds; non-distended; soft, non-tender, no rebound, no guarding; no palpable organomegaly or masses : 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 External genitalia normal. No skin lesions noted. Pelvic Exam: No active bleeding. Moderate amount of a yellowish-green discharge in the vaginal vault. Cervix appears normal. No CMT. No lesions or masses. Uterus normal size and mildly tender. Right/Left adnexa normal size and non tender. BACK: The back appears normal and is non-tender to palpation, there is no CVA tenderness EXT: Normal ROM in all joints; non-tender to palpation; no cyanosis, no effusions, no edema SKIN: Normal color for age and race; warm; dry; good turgor; no acute lesions noted NEURO: Moves all extremities equally; Motor and sensory function intact, does report some tingling in the hands and feet bilaterally to touch PSYCH: The patient's mood and manner are appropriate. Grooming and personal hygiene are appropriate. MDM: 49-year-old female with multiple complaints, the majority of her complaints are likely related to hyperglycemia or DKA. She stopped her medication 6 months ago. Will perform pelvic exam to evaluate for candidiasis or bacterial vaginitis. Will obtain screening labs on the patient to evaluate for DKA or electrolyte abnormalities. Will obtain 1 set of screening cardiac labs given her complaint of shortness of breath and cough over the last month, low suspicion for coronavirus at this time, she is afebrile and not hypoxic TRAVEL OUTSIDE OF THE [place] IN LAST 30 DAYS: No - Related Data Allergies/Adverse Reactions: Penicillins Allergy (Verified 06/05/19 10:41) Home Medications: Non-compliant Past Medical History - Social History Smoking Status: Unknown if Ever Smoked Family History: Reviewed & Not Pertinent Patient has suicidal ideation: No Patient has homicidal ideation: No - Past Medical History Cardiac Medical History: Reports: Hx Hypertension - on meds Denies: Hx Coronary Artery Disease, Hx Heart Attack Pulmonary Medical History: Denies: Hx Asthma, Hx Bronchitis, Hx COPD, Hx Pneumonia Neurological Medical History: Denies: Hx Cerebrovascular Accident, Hx Seizures Endocrine Medical History: Reports: Hx Diabetes Mellitus Type 2 Renal/ Medical History: Denies: Hx Peritoneal Dialysis Musculoskeletal Medical History: Reports Hx Arthritis - low back arthritis Psychiatric Medical History: Reports: Hx Depression Past Surgical History: Reports: Hx Tubal Ligation. Denies: Hx Hysterectomy - Immunizations Hx Diphtheria, Pertussis, Tetanus Vaccination: Yes Physical Exam - Vital signs Vitals: Temp Pulse Resp BP Pulse Ox 98.2 F 86 17 148/96 H 97 02/11/20 09:16 02/11/20 09:16 02/11/20 09:16 02/11/20 09:16 02/11/20 09:16 Course - Re-evaluation Re-evalutation: 02/11/20 13:05 Patient blood glucose is improving. She has received IV fluids will hang additional IV fluids, she has received insulin, metformin. Patient's lab work otherwise does not show acute emergent abnormalities she is not in DKA. Chest x-ray does not show any abnormalities. Plan to discharge home, restart on met formin, will place patient on Flagyl as she likely has bacterial vaginitis. She also has vaginal Nieves will give her Diflucan here - Vital Signs Vital signs: Temp Pulse Resp BP Pulse Ox 98.2 F 86 17 148/96 H 97 02/11/20 09:16 02/11/20 09:16 02/11/20 09:16 02/11/20 09:16 02/11/20 09:16 - Laboratory Result Diagrams: 02/11/20 10:04 02/11/20 10:04 Laboratory results interpreted by me: 02/11/20 02/11/20 02/11/20 09:59 10:04 10:04 MCH 26.6 L Sodium 134.4 L Creatinine 0.37 L Glucose 423 H* POC Glucose 389 H Alkaline Phosphatase 161 H Urine Glucose (UA) Urine Ketones Ur Leukocyte Esterase 02/11/20 02/11/20 10:04 12:42 MCH Sodium Creatinine Glucose POC Glucose 376 H Alkaline Phosphatase Urine Glucose (UA) >=500 H Urine Ketones TRACE H Ur Leukocyte Esterase SMALL H Discharge - Discharge Clinical Impression: Hyperglycemia, Medication refill, Bacterial vaginitis, Nieves vaginitis Condition: Stable Disposition: HOME, SELF-CARE Instructions: Hyperglycemia ([facility]) Additional Instructions: Take the medication as prescribed. Follow-up with a primary care provider for reevaluation of symptoms. You have been prescribed metformin at this time for your elevated blood sugars because you have been off your medication for such a long period of time, you will likely need to speak with primary care regarding restarting insulin dosing. Prescriptions: Metronidazole [Flagyl 500 mg Tablet] 500 mg PO BID #14 tablet Metformin HCl 1,000 mg PO BID #60 tablet Referrals: ISMA NICHOLAS MD [NO LOCAL MD] - Follow up as needed
[2020-02-11] MEDS ORDERED: METFORMIN HCL 500 MG TABLET PO ONE (10:08)
[2020-02-11 10:39] LABS: VENOUS BLOOD BASE EXCESS -0.4 mmol/L; VENOUS BLOOD HCO3 25.3 mmol/L (20-32); VENOUS BLOOD PCO2 44.9 mmHg (35-63); VENOUS BLOOD PH 7.37 (7.30-7.42)
[2020-02-11 10:40] LABS: ABSOLUTE EOSINOPHILS # (AUTO) 0.1 10^3/uL (0.0-0.6); ABSOLUTE LYMPHOCYTES (AUTO) 1.7 10^3/uL (0.5-4.7); ABSOLUTE MONOCYTES (AUTO) 0.5 10^3/uL (0.1-1.4); ABSOLUTE NEUT (AUTO) 3.5 10^3/uL (1.7-8.2); BASOPHILS % (AUTO) 0.7 % (0-2); EOSINOPHILS % (AUTO) 1.4 % (0-6); HEMATOCRIT 41.4 % (36.0-47.0); HEMOGLOBIN 13.6 g/dL (12.0-15.5); LYMPHOCYTES % (AUTO) 29.6 % (13-45); MEAN CORPUSCULAR HEMOGLOBIN 26.6 pg (27.0-33.4); MEAN CORPUSCULAR HGB CONC 32.8 g/dL (32.0-36.0); MEAN CORPUSCULAR VOLUME 81 fl (80-97); MONOCYTES % (AUTO) 7.9 % (3-13); PLATELET COUNT 255 10^3/uL (150-450); RED BLOOD COUNT 5.11 10^6/uL (3.72-5.28); SEGMENTED NEUTROPHILS % (AUTO) 60.4 % (42-78); TOTAL CELLS COUNTED % (AUTO) 100 %; WHITE BLOOD COUNT 5.8 10^3/uL (4.0-10.5)
[2020-02-11 10:47] LABS: APPEARANCE,URINE CLEAR; BILIRUBIN,URINE NEGATIVE (NEGATIVE); COLOR,URINE YELLOW; GLUCOSE, URINE >=500 mg/dL (NEGATIVE); KETONES,URINE TRACE mg/dL (NEGATIVE); LEUKOCYTE ESTERASE,URINE SMALL (NEGATIVE); NITRITE,URINE NEGATIVE (NEGATIVE); PROTEIN,URINE NEGATIVE (NEGATIVE); URINE SPECIFIC GRAVITY 1.037; UROBILINOGEN,URINE NEGATIVE mg/dL (<2.0)
--- NOTE | 2020-02-11 10:53 | RADIOLOGY REPORT (SQ) ---
EXAM DESCRIPTION: CHEST SINGLE VIEW IMAGES COMPLETED DATE/TIME: 02/11/2020 10:44 am REASON FOR STUDY: sob COMPARISON: None. NUMBER OF VIEWS: One view. TECHNIQUE: Single frontal radiographic view of the chest acquired. LIMITATIONS: None. FINDINGS: LUNGS AND PLEURA: No opacities, masses or pneumothorax. No pleural effusion. MEDIASTINUM AND HILAR STRUCTURES: No masses. Contour normal. HEART AND VASCULAR STRUCTURES: Heart normal in size. Normal vasculature. BONES: No acute findings. HARDWARE: None in the chest. OTHER: No other significant finding. IMPRESSION: NO SIGNIFICANT RADIOGRAPHIC FINDING IN THE CHEST. TECHNICAL DOCUMENTATION: JOB ID: [id number] 2010 [employer]- All Rights Reserved Reading location - IP/workstation name: [email or web address]
[2020-02-11 10:57] LABS: BACTERIA (WET MOUNT) 3+ BACTERIA SEEN; RBCS (WET MOUNT) RARE RBCS SEEN; T.VAGINALIS (WET MOUNT) NO TRICHOMONAS SEEN; WBCS (WET MOUNT) 1+ WBCS SEEN; YEAST (WET MOUNT) YEAST SEEN
[2020-02-11 11:00] LABS: ALBUMIN 3.7 g/dL (3.5-5.0); ALKALINE PHOSPHATASE 161 U/L (38-126); ANION GAP 9 (5-19); ASPARTATE AMINO TRANSFERASE 23 U/L (14-36); BILIRUBIN,TOTAL 0.6 mg/dL (0.2-1.3); BLOOD UREA NITROGEN 7 mg/dL (7-20); CALCIUM 9.1 mg/dL (8.4-10.2); CARBON DIOXIDE 25 mmol/L (22-30); CHLORIDE 100 mmol/L (98-107); POTASSIUM 4.7 mmol/L (3.6-5.0); TOTAL PROTEIN 7.6 g/dL (6.3-8.2)
[2020-02-11 11:12] LABS: GLUCOSE 423 mg/dL (75-110)
[2020-02-11] MEDS ORDERED: INSULIN REG, HUMAN 100 UNIT/ML 3 ML VIAL (PYX) SUBCUT ONE (11:27)
[2020-02-11 12:22] LABS: CHLAM PCR NOT DETECTED (NOT DETECT)
[2020-02-11] MEDS ORDERED: FLUCONAZOLE 100 MG TABLET PO ONE (13:05)
[2020-02-11 13:38] VITALS: BP 131/83
--- NOTE | 2020-02-12 09:23 | EKG REPORT ---
SEVERITY:- BORDERLINE ECG - SINUS RHYTHM PROBABLE LEFT ATRIAL ABNORMALITY : Confirmed by: Kim Abreu 12-Feb-2020 09:22:49
== END 2020-02-11 13:42 | disposition home or self-care (01) ==
LOC: ER 09:07
DX: N76.0 Acute vaginitis (principal); B37.3 Candidiasis of vulva and vagina; B96.89 Other specified bacterial agents as the cause of diseases classified elsewhere; R06.02 Shortness of breath; R05 Cough; I10 Essential (primary) hypertension; E11.9 Type 2 diabetes mellitus without complications; Z98.51 Tubal ligation status; Z88.0 Allergy status to penicillin; Z79.4 Long term (current) use of insulin; Z79.84 Long term (current) use of oral hypoglycemic drugs
CPT/HCPCS: 93005; 99285; 96360; 96361; 36415; 87210; 82962; 83735; 85025; 81025; 80053; 81001; 84484; 87491; 87591; 82803; 83880; 71045; 93010; J1815; J7030

== ENCOUNTER → 2020-09-04 | Outpatient (CLI) | payer OTHER ==
--- NOTE | 2020-09-04 13:42 | RADIOLOGY REPORT (SQ) ---
EXAM DESCRIPTION: LUMBAR SPINE COMPLETE IMAGES COMPLETED DATE/TIME: 09/04/2020 10:16 am REASON FOR STUDY: LUMBAR RADICULOPATHY M54.16 RADICULOPATHY, LUMBAR REGION COMPARISON: None. NUMBER OF VIEWS: Five views including obliques. TECHNIQUE: AP, lateral, oblique, and sacral radiographic images acquired of the lumbar spine. LIMITATIONS: None. FINDINGS: MINERALIZATION: Normal. SEGMENTATION: Normal. No transitional anatomy. ALIGNMENT: Normal. VERTEBRAE: Maintained height. No fracture or worrisome bone lesion. DISCS: Preserved height. No significant osteophytes or end plate irregularity. POSTERIOR ELEMENTS: Pedicles and facets are intact. No pars defect or posterior arch defects. HARDWARE: None in the spine. PARASPINAL SOFT TISSUES: Normal. PELVIS: Intact as visualized. No fractures or worrisome bone lesions. SI joints intact. OTHER: No other significant finding. IMPRESSION: NORMAL 5 VIEW LUMBAR SPINE. TECHNICAL DOCUMENTATION: JOB ID: [id number] 2010 [employer]- All Rights Reserved Reading location - IP/workstation name: [email or web address]
== END ==
LOC: OD 10:05
PROVIDERS: ATTEND Family Medicine
DX: M54.16 Radiculopathy, lumbar region (principal)
CPT/HCPCS: 72110